=== PATIENT | female | born 1980 | race Caucasian/White ===

== ENCOUNTER 2022-11-05 20:41 | Emergency (ER) | payer BC, MEDICAID ==
[2022-11-05 20:53] VITALS: BP 145/88; PULSE 73
== END 2022-11-05 23:05 | disposition home or self-care (01) ==
LOC: DL.ED 20:41
DX: J06.9 Acute upper respiratory infection, unspecified (principal); H65.192 Other acute nonsuppurative otitis media, left ear; F17.210 Nicotine dependence, cigarettes, uncomplicated; Z86.16 Personal history of COVID-19; Z79.899 Other long term (current) drug therapy
CPT/HCPCS: 99282; 99283